=== PATIENT | female | born 1950 | race Two or more races ===

== ENCOUNTER 2017-08-24 15:10 | Emergency (ER) | payer MEDICARE, MEDICAID ==
[~2017-08-24] VITALS: Ht 162.6 cm; Wt 68.0 kg
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
[2017-08-24] MEDS ORDERED: Lidocaine 1% MPF 10mg/ml 5ml IM ONE (15:30)
[2017-08-24 15:33] VITALS: BP 122/71
[2017-08-24] MEDS ORDERED: Tetanus/Diptheria/Pertussis Vaccine 0.5ml Syr IM ONE (16:00)
--- NOTE | 2017-08-24 16:29 | Diagnostic Imaging Report ---
Indication: Pain Technique: 3 views left hand Comparison: none Findings: The bones are osteoporotic. The joint spaces are preserved. No acute fractures. No dislocations. Impression: No acute process Osteoporosis
[2017-08-24] MEDS ORDERED: TYLENOL EXTRA500 MG ORAL (17:00)
[2017-08-24] MEDS ORDERED: CEPHALEXIN500 MG ORAL (17:00)
[2017-08-24 17:14] VITALS: BP 120/75
== END 2017-08-24 17:10 | disposition home or self-care (01) ==
LOC: EMR 16:15
DX: S61.217A Laceration without foreign body of left little finger without damage to nail, initial encounter (principal); Y04.2XXA Assault by strike against or bumped into by another person, initial encounter; Y92.9 Unspecified place or not applicable; Z23 Encounter for immunization; M81.0 Age-related osteoporosis without current pathological fracture
CPT/HCPCS: 90471; 90715; 99284

== ENCOUNTER 2017-08-26 18:44 | Emergency (ER) | payer MEDICARE, MEDICAID ==
[~2017-08-26] VITALS: Ht 162.6 cm; Wt 68.0 kg
[~2017-08-26 18:44] MED LIST: CEPHALEXIN500 MG ORAL; TYLENOL EXTRA500 MG ORAL
[2017-08-26 19:15] VITALS: BP 130/59
--- NOTE | 2017-08-26 19:40 | Emergency Room Report ---
History of Present Illness General Chief Complaint: Wound Recheck/Suture Removal Source: Patient, Medical Record Present Illness HPI 67 yo female patient presents to ER for wound check. Patient previously seen in ER for laceration on pinky finger of left hand. Patient xray at that time negative for fracture. Patient reports taking medications as previously instructed. Denies worsening of pain symptoms. Denies fever, chest pain, SOB. Denies new acute injury since that time. Allergies: Coded Allergies: No Known Allergies (Unverified , 08/24/17) Patient History Past Medical History: see triage record Reviewed Nursing Documentation: PMH: Agreed; PSxH: Agreed Nursing Documentation-PMH Past Medical History: No History, Except For Review of Systems All Other Systems: negative except mentioned in HPI Physical Exam Vital Signs Date Time Temp Pulse Resp B/P (MAP) Pulse Ox O2 Delivery O2 Flow Rate FiO2 08/26/17 18:55 97.9 71 18 130/59 95 Room Air 97.9 Sp02 EP Interpretation: reviewed, normal General Appearance: well appearing, no apparent distress, alert, GCS 15, non- toxic Head: normocephalic, atraumatic Eyes: bilateral eye normal inspection, bilateral eye PERRL Neck: full range of motion Respiratory: lungs clear, normal breath sounds, no rhonchi, no respiratory distress, no accessory muscle use, no wheezing, speaking full sentences Cardiovascular #1: regular rate, rhythm, no edema Musculoskeletal: back normal, digits/nails normal, gait/station normal, non- tender, decreased range of motion - secondary to pain, swelling, other - NVI, tender Neurologic: alert, oriented x3, responsive, motor strength/tone normal, sensory intact Skin: no rash, laceration - left hand pinky finger: healing laceration, no surrounding erythema, scabbing over Lymphatic: no adenopathy Medical Decision Making PA Attestation Dr. Man is my supervising Physician whom patient management has been discussed with. Diagnostic Impression: Primary Impression: Encounter for wound re-check ER Course Pt. presents to the ED requesting wound check of laceration on small finger of left hand. Ddx considered but are not limited to wound check, laceration, cellulitis. Vital signs: are WNL, pt. is afebrile Ordered Bacitracin and finger splint ED INTERVENTIONS: Wound has no signs of infection., no surrounding erythema, mild edema, TTP, sensation is intact to light touch. Wound appears improved from previous visit. No [place] signs, no fusiform swelling, no TTP over flexor tendon, no pain with extension. Low suspicion for flexor tenosynovitis. Patient wound redressed with Bacitracin and sterile dressing, patient finger placed in finger splint. Patient instructed to followup with primary care provider or return to ER for removal of sutures in 5-7 days. DISCHARGE: Patient decline need for pain medication at this time. Patient instructed to continue with medications per initial ER provider instructions. At this time pt. is stable for d/c to home. Patient is resting comfortably, in no acute distress, non-toxic appearing, smiling. Will provide printed patient care instructions and any necessary prescriptions. Care plan and follow up instructions have been discussed with the patient prior to discharge. Patient instructed to follow-up with primary care provider for further treatment and referral. Patient questions asked and answered. ER precautions given. Patient instructed to return to ER immediately for any new or worsening of symptoms including but not limited to fever, worsening of pain symptoms. Last Vital Signs Date Time Temp Pulse Resp B/P (MAP) Pulse Ox O2 Delivery O2 Flow Rate FiO2 08/26/17 18:55 97.9 71 18 130/59 95 Room Air 97.9 Disposition: HOME, SELF-CARE Condition: Stable Patient Instructions: Wound Check Additional Instructions: Followup with primary care provider in 6-7 days for wound check and suture removal. If PCP unable to see you, return to ER for suture removal. Take medications as previously directed. Patient questions asked and answered. ER precautions given, patient instructed to return to ER immediately for any new or worsening of symptoms. Calvin Richardson Aug 26, 2017 19:40
[2017-08-26] MEDS ORDERED: Bacitracin Oint UD TOPIC ONE (19:45)
[2017-08-26 19:55] VITALS: BP 130/59
== END 2017-08-26 19:55 | disposition home or self-care (01) ==
LOC: EMR 19:55
DX: S61.217D Laceration without foreign body of left little finger without damage to nail, subsequent encounter (principal); X58.XXXD Exposure to other specified factors, subsequent encounter
CPT/HCPCS: 99281